=== PATIENT | female | born 1955 | race Caucasian/White ===

== ENCOUNTER 2017-07-04 12:18 | Outpatient (CLI) | payer OTHER | END 2017-07-04 12:19 | disposition home or self-care (01) | LOC: BICRAD 12:18 | PROVIDERS: ATTEND Internal Medicine Rheumatology | DX: M25.561 Pain in right knee (principal) ==

== ENCOUNTER 2017-07-12 09:39 | Outpatient (CLI) | payer OTHER ==
--- NOTE | 2017-07-12 14:20 | NM ---
WHOLE BODY BONE SCAN: Date: 07/12/17 HISTORY: Metabolic disorder unspecified, osteitis of unspecified bone, back pain, increasingly worse. Paget's disease. RADIOPHARMACEUTICAL: 31 mCi technetium-99m MDP injected intravenously. COMPARISON: None. FINDINGS: There is increased uptake with suggestion of bony expansion in multiple bones, consistent with Paget' s disease, including the left clavicle, right hemipelvis, and lumbar vertebrae (likely T9, T11, L1, a nd L5). There are foci of increased uptake in the left sacroiliac region, right acetabulum, left pubic bone, and left proximal femur (subtrochanteric). These are nonspecific findings and should be correlated wi th plain radiographs. Tracer excretion through the kidneys is within normal limits. Increased uptake in the right shoulder and the feet are consistent with degenerative changes. IMPRESSION: 1. Findings are consistent with multifocal Paget's disease. 2. Nonspecific foci of uptake as discussed above. 3. Correlation of the scintigraphic findings with plain radiographs is recommended. POS: [facility]
== END 2017-07-12 09:40 | disposition home or self-care (01) ==
LOC: NM 09:39
PROVIDERS: ATTEND Internal Medicine Rheumatology
DX: E88.9 Metabolic disorder, unspecified (principal); M88.9 Osteitis deformans of unspecified bone
CPT/HCPCS: 78306; A9503

== ENCOUNTER 2017-09-04 11:51 | Day surgery (SDC) | payer OTHER ==
[2017-09-04] MEDS ORDERED: diphenhydrAMINE 25 MG CAP PO PRN (11:54)
[2017-09-04] MEDS ORDERED: Acetaminophen 500 MG TAB PO PRN (11:54)
[2017-09-04] MEDS ORDERED: diphenhydrAMINE 50 MG/ML VIAL IVP PRN (11:55)
[2017-09-04] MEDS ORDERED: Zoledronic Acid 4 MG in Sodium Chloride 0.9% 100 ML IVPB SCH (12:00)
[2017-09-04 12:03] VITALS: BP 150/77; TEMP 98.1
== END 2017-09-04 13:36 | disposition home or self-care (01) ==
LOC: ONC/OP 11:51
PROVIDERS: ATTEND Internal Medicine Rheumatology
DX: M88.9 Osteitis deformans of unspecified bone (principal); E88.9 Metabolic disorder, unspecified
CPT/HCPCS: 96365; J3489; J7050

== ENCOUNTER 2018-11-06 10:04 | Outpatient (CLI) | payer OTHER ==
--- NOTE | 2018-11-06 12:34 | BD ---
Exam: DEXA Bone Density 11/06/18 HISTORY: Age-related osteoporosis without current pathologic fracture. COMPARISON: None. FINDINGS: Lumbar Spine: BMD (g/cm2) T-SCORE Z-SCORE L1 1.560 5.2 6.7 L2 0.991 -0.3 1.3 L3 0.847 -2.2 -0.4 L4 1.775 6.5 8.3 L1-L4 1.315 2.4 4.1 Left Femoral Neck: 1.069 2.0 3.4 Total Left Hip: 1.198 2.1 3.3 WHO classification is normal. Ten year fracture risk: Major osteoporotic fracture: 8%. Hip fracture: 0.1%. Impression: 1. Normal bone mineral density. Elevated bone mineral density lumbar spine due to multifocal Paget's disease. POS: [facility]
== END 2018-11-06 10:05 | disposition home or self-care (01) ==
LOC: BICMAMMO 10:04
PROVIDERS: ATTEND Internal Medicine Rheumatology
DX: M81.0 Age-related osteoporosis without current pathological fracture (principal); M85.88 Other specified disorders of bone density and structure, other site; M88.1 Osteitis deformans of vertebrae
CPT/HCPCS: 77080

== ENCOUNTER 2018-11-15 09:53 | Outpatient (CLI) | payer OTHER ==
--- NOTE | 2018-11-15 13:52 | NM ---
EXAM: NM Bone Scan STANDARD PROVIDED CLINICAL HISTORY: Osteitis deformans of unspecified bone. Paget's disease. Patient currently on medication. COMPARISON: 11/27/2017 FINDINGS: There are overall stable areas of increased uptake of radiotracer seen within the left clavicle, lowe r thoracic vertebral bodies, and in the lower lumbar spine as well as involving each sacroiliac joint, right hemipelvis, and proximal left femur. The overall intensity of these areas of uptake has decreased when compared to study on 07/12/2017 but stable when compared to the study on 11/27/2017. There has been interval decrease in degree of uptake involving the right mandible compared to prior s tudy. Uptake in the right shoulder, left knee and right foot are in a degenerative type pattern and similar to prior exam. No new areas of abnormal uptake of radiotracer are seen throughout the visualized axial and appendicu lar skeleton. Normal uptake is again seen within the kidneys bilaterally. IMPRESSION: 1. Scattered areas of uptake of radiotracer are unchanged and again likely related to multifocal Page t's disease as suggested on prior exam. 2. Improvement in intensity of uptake seen within right mandible compared to prior study. This may be attributable to periodontal disease.
== END 2018-11-15 09:54 | disposition home or self-care (01) ==
LOC: NM 09:53
PROVIDERS: ATTEND Internal Medicine Rheumatology
DX: M88.9 Osteitis deformans of unspecified bone (principal)
CPT/HCPCS: 78306; A9503

== ENCOUNTER 2021-11-15 09:30 | Outpatient (CLI) | payer MEDICARE, BC | END 2021-11-15 09:31 | disposition home or self-care (01) | LOC: BICMAMMO 09:30 | PROVIDERS: ATTEND Internal Medicine Rheumatology | DX: M81.0 Age-related osteoporosis without current pathological fracture (principal); M88.9 Osteitis deformans of unspecified bone; M85.88 Other specified disorders of bone density and structure, other site | CPT/HCPCS: 77080 ==

== ENCOUNTER 2021-11-15 10:07 | Outpatient (CLI) | payer MEDICARE, BC | END 2021-11-15 10:08 | disposition home or self-care (01) | LOC: NM 10:07 | PROVIDERS: ATTEND Internal Medicine Rheumatology | DX: M81.0 Age-related osteoporosis without current pathological fracture (principal); M88.9 Osteitis deformans of unspecified bone; M85.88 Other specified disorders of bone density and structure, other site | CPT/HCPCS: 78306; A9503; 77080 ==

== ENCOUNTER 2022-12-27 10:07 | Outpatient (CLI) | payer MEDICARE, BC | END 2022-12-27 10:08 | disposition home or self-care (01) | LOC: NM 10:07 | PROVIDERS: ATTEND Internal Medicine Rheumatology | DX: M88.9 Osteitis deformans of unspecified bone (principal) | CPT/HCPCS: 78306; A9503 ==